=== PATIENT | male | born 1930 | race Caucasian/White ===

== ENCOUNTER 2018-11-07 19:03 | Emergency (ER) | payer OTHER ==
[~2018-11-07] VITALS: Ht 177.8 cm; Wt 117.9 kg
[2018-11-07] MEDS ORDERED: ACIDOPHILUS1 EAC4 PO (19:44)
[2018-11-07] MEDS ORDERED: TYLENOL325 MG PO (19:44)
[2018-11-07] MEDS ORDERED: LIPITOR 20 MG T20 M1 PO (19:45)
[2018-11-07] MEDS ORDERED: ASPIR 8181 MG PO (19:45)
[2018-11-07] MEDS ORDERED: AMARYL2 MG PO (19:46)
[2018-11-07] MEDS ORDERED: VITAMIN D1000 UNI1 PO (19:46)
[2018-11-07] MEDS ORDERED: GLYCOLAX119 GM PO (19:48)
[2018-11-07] MEDS ORDERED: LANTUS SUBQ (19:50)
[2018-11-07] MEDS ORDERED: GLUCOPHAGE XR750 MG PO (19:52)
[2018-11-07] MEDS ORDERED: LISINOPRIL10 MG PO (19:52)
[2018-11-07] MEDS ORDERED: UNICOMPLEX M TA1 TA1 PO (19:53)
[2018-11-07] MEDS ORDERED: LOPRESSOR50 PO (19:53)
[2018-11-07] MEDS ORDERED: NOVOLOG100 UNIT/1 SUBQ (19:59)
[2018-11-07] MEDS ORDERED: PREMARIN0.625 MG PO (20:00)
[2018-11-07] MEDS ORDERED: ZOLOFT50 MG PO (20:00)
[2018-11-07] MEDS ORDERED: HYTRIN 2MG CAPSU2 M1 PO (20:01)
[2018-11-07] MEDS ORDERED: ALDACTONE50 MG PO (20:01)
[2018-11-07] MEDS ORDERED: TYLENOL EXTRA500 MG PO (20:02)
[2018-11-07 20:03] LABS: ABSOLUTE NEUTROPHILS 5.3 thou/uL (1.4-8.2); BASOPHILS 1.4 % (0.0-2.0); EOSINOPHILS 2.4 % (0.0-3.0); HEMATOCRIT 34.9 % (42.0-52.0); HEMOGLOBIN 12.8 gm/dL (14.0-18.0); LYMPHOCYTES 22.3 % (24.0-44.0); MCH 33.6 pg (26.0-34.0); MCHC 36.5 g/dL (28.0-37.0); MCV 92.1 fL (80.0-100.0); MONOCYTES 4.9 % (1.0-8.0); PLATELET COUNT 251 thou/uL (150-400); RBC 3.79 mil/uL (4.50-6.00); RDW 12.6 % (10.5-14.5); WBC 7.6 thou/uL (4.0-11.0)
[2018-11-07 20:12] LABS: CALCIUM 9.8 mg/dL (8.5-10.1); CREATININE 1.5 mg/dL (0.7-1.3); POTASSIUM 4.9 mmol/L (3.5-5.1)
[2018-11-07 20:25] LABS: ALBUMIN 3.6 g/dL (3.4-5.0); TOTAL BILIRUBIN 0.3 mg/dL (<0.1-1.0); TOTAL PROTEIN 7.4 g/dL (6.4-8.2)
[2018-11-07 21:28] LABS: URINE BILIRUBIN NEGATIVE (Negative); URINE BLOOD NEGATIVE (Negative); URINE CLARITY CLEAR; URINE COLOR YELLOW; URINE GLUCOSE-RANDOM* NEGATIVE (Negative); URINE KETONES NEGATIVE (Negative); URINE LEUKOCYTES-REFLEX NEGATIVE (Negative); URINE NITRITE-REFLEX NEGATIVE (Negative); URINE PROTEIN (DIPSTICK) NEGATIVE (Negative); URINE UROBILINOGEN 0.2 E.U./dl (0.2-1.0)
[2018-11-07 21:28] LABS: ANISOCYTOSIS 1+
[2018-11-07 23:20] VITALS: BP 141/58
--- NOTE | 2018-11-08 09:42 | EKG ---
[address] [place] [address] [place] [address] ELECTROCARDIOGRAM REPORT Name: KIRTI KLEIN [facility] [id number] Admission: 11/07/18 Attend Phys: Discharge: 11/07/18 Date of : 32 Report #: [id number] THIS REPORT FOR: //name// [facility] ED Test Date: 2018-11-07 Test Time: 20:08:24 Pat Name: KIRIT KLEIN Department: Room: Gender: Lockstitch Sleeve Setter: humphrey bernard rn : 1930 Requested By: Daniel Khan Order Number: [id number] MD: Nico Price Measurements Intervals Central Rate: 68 P: 44 WI: 209 QRS: -9 QRSD: 84 T: 9 QT: 379 QTc: 404 Interpretive Statements Sinus rhythm Inferior infarct, old No previous ECG available for comparison Electronically Signed On 11-08-2018 9:42:36 AUTO PARKER by Nico Price [email or web address] <ELECTRONICALLY SIGNED> By: Nico Price MD, [facility] 11/08/18 0942 07 07 Nico Price MD, FACC /EPI
== END 2018-11-07 23:21 | disposition home or self-care (01) ==
LOC: ER 19:03
PROVIDERS: Emergency Medicine
DX: F03.91 Unspecified dementia, unspecified severity, with behavioral disturbance (principal); E86.0 Dehydration; E11.9 Type 2 diabetes mellitus without complications; E78.5 Hyperlipidemia, unspecified; G47.33 Obstructive sleep apnea (adult) (pediatric)

== ENCOUNTER 2018-11-08 11:30 | Inpatient (IN) | payer OTHER ==
[~2018-11-08] VITALS: Ht 177.8 cm; Wt 110.4 kg
--- NOTE | 2018-11-08 11:10 | NUR ---
CLIENT AND DAUGHTER HERE AT THIS TIME VIA W/C TO ROOM. DAUGHTER STATED THAT YAIMA KICKED HIM OUT AT 1200 YESTERDAY DUE TO UNAPROPRIATE BEHAVIOR HE DISPLAYED AT [facility]. SHE STATED THEY WAS HERE LAST NIGHT THEN HAD TO COME BACK TODAY. SHE BELIEVES THIS IS NOT THE PLACE FOR HIM AND WANTS TO BE SURE. PARCEL CONTRACTOR TALKED WITH DAUGHTER.
[~2018-11-08 11:30] MED LIST: ACIDOPHILUS1 EAC4 PO; ALDACTONE50 MG PO; AMARYL2 MG PO; ASPIR 8181 MG PO; GLUCOPHAGE XR750 MG PO; GLYCOLAX119 GM PO; HYTRIN 2MG CAPSU2 M1 PO; LANTUS SUBQ; LIPITOR 20 MG T20 M1 PO; LISINOPRIL10 MG PO; LOPRESSOR50 PO; NOVOLOG100 UNIT/1 SUBQ; PREMARIN0.625 MG PO; TYLENOL EXTRA500 MG PO; TYLENOL325 MG PO; UNICOMPLEX M TA1 TA1 PO; VITAMIN D1000 UNI1 PO; ZOLOFT50 MG PO
[2018-11-08 11:41] VITALS: BP 151/72
--- NOTE | 2018-11-08 12:45 | NUR ---
DAUGHTER STATED THAT HE HAD SYPHALIS LAB DONE IN MARCH LAST YEAR SO HE DOESN'T NEED THAT LAB DRAWN.
--- NOTE | 2018-11-08 12:55 | NUR ---
I spoke with pt's family member. She is wanting to have the pt discharged. she stated this is not the place for him. When I inquired why this was not the place fo him. she stated, He is used to a more fun place. The family member refused to have labs drawn. The SW will speak to the family. I have a page into Dr. Klein regarding the family wanting to d/c the pt.
--- NOTE | 2018-11-08 13:18 | NUR ---
DAUGHTER STATED THAT SHE WILL ALLOW LAB AND TO STAY.
[2018-11-08 13:33] LABS: TSH 5.583 uIU/mL (0.358-3.740)
--- NOTE | 2018-11-08 14:00 | NUR ---
CLIENT IN DINNING ROOM ATTENDING SOCIAL WORK GROUP. TALKING WITH YARN HANDLER AND OTHER RESIDENTS.
[2018-11-08 16:07] VITALS: BP 151/72
--- NOTE | 2018-11-08 16:33 | NUR ---
I spoke with aTti from [facility] [phone]. Tati informed me that they are not kicking out Severiano. Tati reported that Severiano's daughter is thinking that [facility] has kicked him out. Tati stated that the physician at [facility] wanted to make sure that Severiano had proper psych treatment before he returned to their facility.
[2018-11-08 19:52] VITALS: BP 160/73
[2018-11-09 04:28] VITALS: BP 160/73
--- NOTE | 2018-11-09 05:11 | NUR ---
PT OUT IN DAY AREA WATCHING TV AT START OF SHIFT. RESPONSIVE TO RN QUESTIONS. DENIES SI OR FEELING PARTICULARLY DEPRESSED. WONDERING WHY HE IS HERE. WEARS A BRIEF DUE TO PERIODIC INCONTINANCE. WANTING TO WEAR ONE AT BEDTIME. DENIED. UP TO BR AFTER BEING INCONT. LINEN AND BED CLOTHING CHANGED. CONFUSED BUT COOPERATIVE. WEAK, AND NEEDS WALKED TO GET AROUND.
[2018-11-09 08:00] VITALS: BP 148/87
[2018-11-09 08:01] VITALS: BP 148/87
--- NOTE | 2018-11-09 08:48 | H ---
[facility] [address] [place] [address] HISTORY AND PHYSICAL Name: KIRTI KLEIN Room #: 518B-B ADM IN M.R.#: [id number] Admission: 11/08/18 Attend Phys: Torey Klein DO Discharge: Date of : 31 Report #: [id number] THIS REPORT FOR: //name// CC: Torey Daltona Fawad DATE OF SERVICE: 11/08/2018 SOURCE OF INFORMATION: Chart reviewed and reviewed with the patient and some records from [facility]. He was at [facility]. The patient was seen briefly in the a.m., little bit longer in the p.m. and then approximately 20 minutes spent in discussion with his daughter. REASON FOR ADMISSION: Referred to [facility] for sexually inappropriate behavior. HISTORY OF PRESENT ILLNESS: This is an 88-year-old male, . The patient has had difficult several days. Apparently, he was asked to leave his nursing facility. He has a history of dementia dating back couple years. The patient was told he could no longer stay at [facility]. He has had some sexually aggressive behavior, apparently asking me both hugs and kisses, alleged propositioning. I do not think he has been really physically aggressive with that. He has been angry with other residents. There was a kind of every couple day behavioral incident in the last few weeks, paperwork I saw. PAST MEDICAL HISTORY: Includes diabetes mellitus type 2, hyperlipidemia, edema, osteoarthritis. He denied nausea, vomiting. His memory care facility is [facility]. ADDITIONAL MEDICAL HISTORY: Ventricular tachycardia, atherosclerotic heart disease, peripheral vascular disease. SOCIAL HISTORY: He is a nonsmoker, nondrinker, has drank alcohol in the past. MEDICATIONS: His skilled nursing medications are Tylenol 325 mg oral every 4 hours as needed for pain, lactobacillus acidophilus 1 tab p.o. daily, aspirin 81 mg p.o. daily, atorvastatin 20 mg oral at bedtime for hyperlipidemia, cholecalciferol 1000 units daily supplementation, glimepiride 2 mg oral daily for hyperglycemia and polyethylene glycol 1700 grams p.o. twice per day, insulin glargine 40 units subcutaneous q.a.m., lisinopril 10 mg p.o. daily, metformin extended release 750 mg daily, metoprolol tartrate 50 mg p.o. twice per day, multivitamin with iron and minerals, insulin aspart q.a.c. 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 Apparently at the nursing facility, spironolactone was discontinued. [address] [address] HISTORY AND PHYSICAL Name: KLEINKRITI KAREN Room #: 518B-B ADM IN M.R.#: [id number] Admission: 11/08/18 Attend Phys: Torey Klein DO Discharge: Date of : 31 Report #: [id number] REVIEW OF SYSTEMS: From the ER. CONSTITUTIONAL: Negative for fever or chills. EYES: Negative for eye pain or visual change. HEENT: Negative for rhinorrhea or sore throat. RESPIRATORY: Negative for cough or shortness of breath. CARDIOVASCULAR: Negative for chest pain, palpitations. GASTROINTESTINAL: Negative for abdominal pain or nausea, vomiting or diarrhea. GENITOURINARY: Negative for burning, urgency, frequency or hematuria. MUSCULOSKELETAL: Negative for back pain or muscle pain. SKIN: Negative for any rashes. NEUROLOGICAL: Negative for numbness, tingling or weakness. A 10-point review of systems otherwise negative from the ER. Because we did not have beds last night, the memory care unit will take the patient back. He can return tomorrow. So the daughter brought him from memory care facility today. He was given IV fluids. Laboratory work from the ER, sodium 135, potassium 4.9, chloride 100, carbon dioxide 25, anion gap 10, BUN 26, creatinine 1.5, estimated GFR 44, glucose 148, calcium 9.9, total bilirubin 0.3, AST 17, ALT 25, alk phos 22, total protein 7.4, albumin 3.6. White count 7.6, H and H 12.8 and 34.9, platelet count 251,000. Urinalysis was negative for signs of infection. Physical exam by Dr. Roman ashley was largely negative. We recommend discontinuing Aldactone, holding metformin, repeating TSH, B12, encouraging p.o. fluids. His current medications in the hospital, lisinopril 10 mg daily, Lantus 40 units daily, aspirin 81 mg daily, terazosin 1 mg at bedtime, Toprol 50 mg twice per day, Depakote I discussed, atorvastatin 20 mg at bedtime, usual PRNs. PHYSICAL EXAMINATION: VITAL SIGNS: Temperature 37.1, pulse rate 76, respirations 18, BP 151/72, O2 sat 99%. MUSCULOSKELETAL: Has an assisted gait, using a rolling walker. GENERAL: This is a well-developed, disheveled male appearing stated age, mildly obese. MENTAL STATUS EXAMINATION: Attention intact. Concentration intact. Speech normal rate, normal tone. Thought process is linear and goal directed. Thought content, focused on the present. No psychomotor agitation. No psychomotor retardation. Denied auditory or visual hallucinations. Denied suicidal intent or plan: Denied hopelessness, helplessness. Denied homicidal intent or plan. Memory noted to be impaired. Insight limited. Judgment limited. Fund of knowledge greater than average. [facility] [address] [place] [address] HISTORY AND PHYSICAL Name: KIRTI KLEIN Room #: 518B-B ADM IN M.R.#: [id number] Admission: 11/08/18 Attend Phys: Torey Klein DO Discharge: Date of : 31 Report #: [id number] FORMULATION: An 88-year-old male presented to local memory care facility, asked to be evaluated in the hospital for several recent episodes of inappropriate sexual behavior, which was more talk. There was not really any kind of sexual assault to my knowledge as well as impulsivity. 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 PLAN: Evaluate, stabilize, obtain collateral. Risks, benefits, use of Depakote was discussed with the daughter. We will start him on 750 mg at bedtime. Plan about level in 4-5 days. The daughter has already met with the neonatal social worker. She is already going to look at memory care facility recommended. Time spent on interview, evaluation, review of records, coordination of care is about 45 minutes. <ELECTRONICALLY SIGNED> By: Torey Klein DO 11/09/18 0848 1852 2024 Torey Klein, /nt
--- NOTE | 2018-11-09 09:10 | NUR ---
CLIENT UP FROM ROOM TO EAT BREAKFAST. CLIENT DENIES ANY PAIN. LUNGS CLEAR. NO EDEMA NOTED TO FEET. NO SIGNS OF INAPPROPRIATE BEHAVIORS SINCE ADMIT. UP WITH WALKER. WEARS BRIEF FOR STRESS INONC.
[2018-11-09 10:59] VITALS: BP 148/87
--- NOTE | 2018-11-09 15:04 | NUR ---
CLIENT HAS BEEN ASKING QUESTIONS IF HE HAS DONE SOMETHING WRONG AND ASKING WHY HERE. HE HAS ATTENDED GROUP AND BEEN IN A GOOD MOOD.
--- NOTE | 2018-11-09 16:16 | NUR ---
HANNY HERE TO SEE DAD. WANTING INFO ABOUT DAD GETTING PSYCH EVAL AND IF RESULTS AVAILABLE.
[2018-11-09 20:34] VITALS: BP 121/63
[2018-11-09 23:46] VITALS: BP 121/63
--- NOTE | 2018-11-10 03:34 | NUR ---
PT QUIET THIS PM. SPENT MUCH OF THE EVENING IN HIS ROOM. SOMETIMES SITTING ON HIS BED AND UP TO BR. NO INCIDENTS OF INCONTINANCE. CONFUSED BUT CORDIAL TOOK HS MEDS PRESCRIBED. NEEDS ASSIST WITH TOILETING. USES WALKER TO AMBULATE. WEAK BUT MAINLY STEADY ON HIS FEET.
[2018-11-10 07:22] VITALS: BP 158/69
[2018-11-10 07:53] LABS: ALBUMIN 3.1 g/dL (3.4-5.0); CALCIUM 9.4 mg/dL (8.5-10.1); CREATININE 1.2 mg/dL (0.7-1.3); PHOSPHORUS 5.1 mg/dL (2.5-4.9); POTASSIUM 4.9 mmol/L (3.5-5.1)
[2018-11-10 08:00] VITALS: BP 120/52
--- NOTE | 2018-11-10 09:31 | NUR ---
899 LIBIA Called [facility] [phone] to confirm they recieved fax. It was confirmed the fax was recieved and would be passed on to admissions.
--- NOTE | 2018-11-10 10:41 | NUR ---
ASSUMED PT CARE REPORT RECEIVED FROM NURSE. PT IS AOX4, PLEASANT MOOD. VSS. BP MEDICATIONS ADMISTERED THIS AM. WILL RECHECK BP AGAIN. INITIAL PSYCH ASSESSMENT PERFORMED. PT PARTICIPATE FULLY IN RECREATIONAL THERAPY AND STRETCHING. PO FLUID ENCOURAGED. ACCUCHECK IS 152. INSULIN GLARGINE GIVEN ORDERED. SEE E MAR. NO SEXUAL MISCONDUCT SEEN. PT ATE BREAKFAST AND SAID IT WAS GOOD FOOD. WILL CONTINUE TO MONITOR PT.
--- NOTE | 2018-11-10 11:27 | NUR ---
Severiano's daughter came to visit. She had brought sweat pants with strings in them. I explained to her that I needed to remove the strings. She stated that is ridculous. I explained that since we are a psych unit that someone might get a hold of the stings and hang themselves. Well, that is not why my dad is here. I inquired as to the rationle for her father being here. She said it was because of an angry director of nursing. My dad has dementia and they stated he exposed himself. I asked her to remove her coat. She stated I don't like you. Everybody had their coat on yesterday. I stated Ma'am I am trying to follow the rules. Severiano's daughter went on to say I don't like you. You are a witch. I asked if we could work things out. She stated NO and I am going to report you. I said ok. She continued come on then cut out those strings. I shared with her I needed to go to the nursing station where the scissors were. I informed the about this conversation.
[2018-11-10 11:43] VITALS: BP 120/52
--- NOTE | 2018-11-10 11:45 | NUR ---
bp recheked at 1140. see charting. wnl. pt daughter in activity room with pt. daughter brought 2 pair of pants which were stored in pt locker. accucheck 308. insulin to be given. pt awaiting for lunch
--- NOTE | 2018-11-10 15:28 | NUR ---
AMARILIS met with Pt's daughter, Elmer, in person. Elmer wanted information on a meeting scheduled for Monday11/12/18. Elmer stated the meeting was a discharge meeting. AMARILIS stated, "I don't know that but, I can check with Michael concerning the purpose of the meeting". Elmer provided AMARILIS with her number [phone] indicating the phone does not work but AMARILIS is able to leave a message for her. Amarilis did inform Elmer that information was faxed to [facility] 09/08/19 and AMARILIS confirmed infomration was recieved by the facilty on 09/09/18. AMARILIS called Elmer at 1534 and left a vm informing Amarilis was unable to reach [facility] and there was no indication in the record that the meeting on Monday was concerning Discharge.
[2018-11-10 20:28] VITALS: BP 107/81
--- NOTE | 2018-11-11 01:41 | NUR ---
PT AMBULATING TO BATHROOM WITH WALKER AND ASSIST X1 AND IS TOLERATING FAIR. DENIES PAIN. RESTING COMFORTABLY. NO NEEDS VOICED. CALL LIGHT WITHIN REACH. WILL CONTINUE TO PROVIDE FREQUENT OBSERVATION.
[2018-11-11 07:52] VITALS: BP 141/75
--- NOTE | 2018-11-11 11:08 | NUR ---
@1100 LIBIA was approached by Pt's daughter Elmer. Elmer informed LIBIA that she has been getting calls from [place]. Elmer explained that someone from [place] is calling her and telling her that the Pt should have not be sent to be evaluated. Elmer stated, " I hope you all will let [facility] come to the meeting tommorrow". Elmer went on to state, " I am trying to get my dad out of here". LIBIA explained the discharged process to Elmer. Elmer wanted information concerning the Pt's ER visit and admission to the behavioral health unit. LIBIA explained to Elmer she would need to contact medical records concerning Pt's medical records as they are covered by HIPPA and she would need to provid certain information in order for those records to be released. Elmer also informed [facility] is willing to accept the Pt back after discharge. LIBIA informed Elmer this information will be confimed and passed to SUDARSHAN Rodriguez for the Monday meeting.
--- NOTE | 2018-11-11 11:24 | NUR ---
@8228 LIBIA called [facility] [phone] and spoke with Tati Collins, excutive director. Ms. De Leon confirmed Pt can return to [facility] upon discharge. Ms. De Leon also stated she will be attending the meeting Monday11/12/18 in order to get information on the Pt's progress and information on supports the Pt may need in order to return to [facility] safely, in an effort to facilitate a plan with the family for Pt's return. Libia informed Ms. De Leon this information will be passed to SUDARSHAN Rodriguez as she will be running the meeting Monday.
--- NOTE | 2018-11-11 18:56 | NUR ---
ASSUMED PT CARE AT 0700H. PT HAS NO S/S OF DISTRESS. PT ALERT. PT DENIES THOUGH OF HARMING SELF OR OTHERS. PT COOPERATIVE WITH MEDS AND MEALS. PT HAD NO INAPPROPRIATE BEHAVIOR REPORTED ON THE SHIFT. PT HAS BEEN IN DAY ROOM FOR MEALS, ACTIVITIES OR WATCHING TV. PT'S FAMILY, SIM VISITED PT. PT CURRENTLY AMBULATING TO ROOM WITH WALKER AND CONTINUES TO BE MONITORED Q12 MINS FOR SAFETY.
[2018-11-11 19:26] VITALS: BP 96/45
--- NOTE | 2018-11-12 01:42 | NUR ---
PT AMBULATING FROM ACTIVITY ROOM TO BEDROOM WITH WALKER AND STANDBY ASSIST AND IS TOLERATING WELL. TYLENOL PROVIDING PAIN RELIEF. RESTING COMFORTABLY. NO NEEDS VOICED. CALL LIGHT WITHIN REACH. WILL CONTINUE TO PROVIDE FREQUENT OBSERVATION.
[2018-11-12 08:06] VITALS: BP 165/67
[2018-11-12 11:05] VITALS: BP 165/67
--- NOTE | 2018-11-12 15:40 | NUR ---
ON UNIT MUCH OF THE SHIFT. DID HAVE FAMILY VISITORS AND A FAMILY MEETING WITH THE THIS MORNING. PT. HAS BEEN COOPERATIVE WITH STAFF TODAY. PARTICIPATED IN GROUPS. UNABLE TO RECALL THINGS (IE: SONGS, SAYINGS) DURING GROUP TODAY. DENIES AH/VH/HI/SI TODAY. WAS COOPERATIVE WITH TAKING MEDICATIONS PRESCRIBED BY THE DR. HAS NOT REPORTED A BM TODAY. ATE MEALS, ATTENDED GROUPS.
[2018-11-12 19:35] VITALS: BP 107/41
[2018-11-13 00:56] VITALS: BP 102/41
--- NOTE | 2018-11-13 01:57 | NUR ---
ASSUMED PATIENT CARE AT 1900. PATIENT IN BED AT THAT TIME, NOT SLEEPING. REMAINED IN BED UNTIL 2100 MEDICATION TIME, SAT UP ON SIDE OF BED TO TAKE HIS MEDS. THEN STATED TO NURSE THAT HE HAS SOAKED THE BED. STAFF ASSISTED RESIDENT IN GETTING CHANGED AND DRY. A SHORT TIME LATER, ABOUT 2144, RESIDENT CAME OUT TO HALLWAY WITH URINAL IN HAND, WITHOUT HIS WALKER. STATED THAT HE HAD TO PEE. STAFF TOOK HIM BACK TO BATHROOM TO ASSIST HIM IN BR. PATIENT THEN WALKED, WITH WALKER, TO DR AND C/O BEING HUNGRY. PROVIDED SNACK OF PUDDING X2. HE THEN SAT ON RECLINER FOR ABOUT 30 MINUTES, AT WHICH NURSE TOOK HIM TO HIS ROOM AND EXPLAINED THAT IS BEDTIME. HAS BEEN IN BED SLEEPING. CONTINUE TO MONITOR.
--- NOTE | 2018-11-13 04:25 | NUR ---
PATIENT C/O CONSTIPATION, STATING THAT IS WHAT IS MAKING HIS BACK HURT. NURSE ADMINISTERED MILK OF MAGNESIA, 30ML AT 0420 A.M. FOR CONSTIPATION.
[2018-11-13 07:33] VITALS: BP 156/83
[2018-11-13 14:36] VITALS: BP 156/83
--- NOTE | 2018-11-13 14:47 | NUR ---
PT. DISCHARGED TODAY. HIS CAME TO TAKE PT. HOME. WENT OVER THE MEDICATIONS WITH THE , NEED TO CONTACT HIS PCP AND PSYCHIATRIST WITHIN 21 DAYS AND GET AN APPOINTMENT. VERBALIZED UNDERSTANDING OF INFORMATION GIVEN TO HER. ALL BELONGINGS WENT HOME WITH THE AND PT. THIS RN WALKED PT. TO THE FRONT OF THE BUILDING AND HELPED INTO THE CAR. THEY LEFT WITHOUT INCIDENCE. MEDICATIONS CALLED TO THE PHARMACY ([facility] [address] [facility]).
--- NOTE | 2018-11-13 15:12 | NUR ---
LIBIA spoke with Tati at [facility] concerning pt being discharge on November 14, 2018. Tati they will be ready for the pt arrival. LIBIA will follow-up with pt upon discharge.
--- NOTE | 2018-11-13 15:53 | NUR ---
ASSUMED CARE AT 0930 THIS MORNING. PT. WAS ASLEEP ON THE UNIT C/O BEING EXTREMELY TIRED. PT. WAS ALLOWED TO LAY DOWN IN BED. HE WAS GOTTEN UP AT 1200 FOR LUNCH. AFTER LUNCH PT. WAS SHOWERED, DONNED CLEAN CLOTHES. BED CHANGED. PT. HAS HAS BEEN PLEASANT AND COOPERATIVE. HAS ATTENDED GROUPS WHILE HE WAS UP. MORNINGSIDE PLACE WAS HERE TO EVALUATE PT. TODAY.
[2018-11-13 20:21] VITALS: BP 136/33
[2018-11-13 22:37] VITALS: BP 136/33
[2018-11-13 23:06] VITALS: BP 151/74
--- NOTE | 2018-11-14 03:41 | NUR ---
PT SPENT MOST OF THE EVENING EITHER NAPPING OR SITTING IN ROOM. UP TO BR SEVERAL TIMES THIS EVENING WITH MINIMAL ASSIST. NO EPISODES OF INCONTINANCE. TOOK HS MEDS PRESCRIBED. REMAINS GENERALLY CONFUSED, BUT CORDIAL AND COOPERATIVE. SLEPT WELL.
[2018-11-14 08:24] VITALS: BP 155/69
[2018-11-14] MEDS ORDERED: LIPITOR 20 MG T20 M1 PO (10:36)
[2018-11-14] MEDS ORDERED: ASPIR 8181 MG PO (10:36)
[2018-11-14] MEDS ORDERED: LOPRESSOR50 PO (10:36)
[2018-11-14] MEDS ORDERED: HYTRIN 1 MG CAP1 MG PO (10:36)
[2018-11-14] MEDS ORDERED: GLUCOPHAGE XR750 MG PO (10:36)
[2018-11-14] MEDS ORDERED: DEPAKOTE ER250 MG PO (10:36)
[2018-11-14] MEDS ORDERED: AMARYL2 MG PO (10:36)
[2018-11-14] MEDS ORDERED: LEVEMIR SUBQ (10:36)
--- NOTE | 2018-11-14 10:38 | NUR ---
Patient Name: KIRTI KLEIN JR Admission Date: 11/08/18 DISCHARGE PLAN: Pt will discharge to a memory care unit. Care Assessment: Pt was diagnose with Major Neurocognitive Disorder with Behavior Disturbance. Level II Assessment: None Transportation: Pt will be transported by his daughter Isis Special Instructions/Notes: DISCHARGE TO FACILITY: Memory Care Unit Facility: [place], [place] Fax: Address: [address] [place] [id number] Contact Name: Tati De Leon PCP: [facility] Psychiatrist: Facility Psychiatrist
--- NOTE | 2018-11-15 21:08 | D ---
[facility] [place] [address] [address] [place] [address] DISCHARGE SUMMARY Name: IKRTI KLEIN Room #: 518B-B [facility] IN M.R.#: [id number] Admission: 11/08/18 Attend Phys: Torey Klein DO Discharge: 11/14/18 Date of : 31 Report #: [id number] THIS REPORT FOR: //name// CC: Torey Klein Megha Celestin DATE OF SERVICE: 11/14/2018 ATTENDING PHYSICIAN: Torey Klein DO. CHRISTMAS TREE FARM WORKER: Shakila Richardson MD. DISCHARGE DIAGNOSES: Major neurocognitive disorder, likely secondary to Alzheimer's disease with behavioral disturbance, improved. Medical comorbidities this admission include diabetes mellitus, peripheral vascular disease, hypertension, history of V-tach. DISCHARGE PLAN: [facility]. Medical and psychiatric care to be provided at that facility. DISCHARGE MEDICATIONS: Atorvastatin 20 mg p.o. at bedtime; terazosin 1 mg at bedtime for BPH; lovastatin for hyperlipidemia; metoprolol tartrate 50 mg twice a day; for rate control aspirin 81 mg orally for cardioprotection; Depakote 1250 mg at bedtime for mood stabilization, this has increased from 750 mg due to low blood level at 32. Repeat blood levels should be done at 1800 this week or Monday; metformin ER 750 mg twice a day with meals, Levemir 40 units subcutaneous daily for hyperglycemia and glimepiride 2 mg p.o. daily in a.m. with breakfast for hyperglycemia; cholecalciferol 1000 units daily for supplementation; multivitamin 1 tab p.o. daily with iron and minerals for supplementation. LABORATORIES: Done this admission included on 11/10/2018, chemistries with abnormalities, BUN 22, glucose 152, estimated GFR 54, phosphorus 5.1. On 11/07/2018, ALT 25, alkaline phosphatase 22, albumin 3.1. TSH 5.583. Urinalysis negative. Serology for syphilis negative. REASON FOR ADMISSION: Alleged inappropriate sexual behavior and aggression at a fpc facility. HOSPITAL COURSE: The patient was admitted to Geriatric Psychiatry Unit. He had a good stay, eating well, sleeping at night. Given the strong outside history, elected to go ahead and start him on Depakote ER 750 mg at bedtime, tolerated that well. We did have low blood levels and I lifted it up to 1250 mg and we will repeat blood level. Family meeting was had with his daughter, Isis and family. [facility] [address] [place] [address] DISCHARGE SUMMARY Name: KLEINKIRTI KAREN Room #: 518B-B [facility] IN .R.#: [id number] Admission: 11/08/18 Attend Phys: Torey Klein, Discharge: 11/14/18 Date of : 31 Report #: [id number] DIAGNOSES: Major neurocognitive disorder was given prognosis and need for ongoing memory care. They are considering new facility who has felt best to have him return for a few weeks to the [facility] and then make a more reasonable move to go indefinitely from there. PHYSICAL EXAMINATION: VITAL SIGNS: Temperature 36.6, pulse rate 66, respirations 18, BP 155/69, O2 sat 96%. Normal gait and station with walker. Clearly, well-developed, well-nourished, obese male appearing nearly stated age. Attention limited, concentration limited and speech slow. Normal volume. Thought process linear, limited thought content. Focus still not present, no psychomotor agitation, no significant retardation. Denied auditory, visual or tactile hallucination. Denied suicidal intent or plan. Denied hopelessness or helplessness. Denied homicidal intent or plan. Memory known to be impaired. Insight limited. Judgment limited. Fund of knowledge below average. PROGNOSIS: This patient is guarded due to advancing age of 88 and major neurocognitive disorder. <ELECTRONICALLY SIGNED> By: Torey Klein DO 11/15/[id number] 39 56 Torey Klein DO /nt
== END 2018-11-14 11:30 | DRG 57 ==
LOC: SBH 11:30
PROVIDERS: Hospitalist; ADMIT Psychiatry & Neurology Psychiatry
DX: G30.9 Alzheimer's disease, unspecified (principal); N17.9 Acute kidney failure, unspecified; F02.81 Dementia in other diseases classified elsewhere, unspecified severity, with behavioral disturbance; E11.51 Type 2 diabetes mellitus with diabetic peripheral angiopathy without gangrene; I10 Essential (primary) hypertension; E78.5 Hyperlipidemia, unspecified; M19.90 Unspecified osteoarthritis, unspecified site; I25.10 Atherosclerotic heart disease of native coronary artery without angina pectoris; N40.0 Benign prostatic hyperplasia without lower urinary tract symptoms; Z79.899 Other long term (current) drug therapy
CPT/HCPCS: 10880